=== PATIENT | female | born 1965 | race Caucasian/White ===

== ENCOUNTER → 2019-06-27 | Outpatient (CLI) | payer OTHER ==
[~2019-06-27] MED LIST: ATIVAN0.5 MG PO; CEFDINIR300 MG PO; CELEBREX 200 M200 M1 PO; HUMALOG100 UNIT/1 SUBQ; HYDROCODONE-AP1 EAC6 PO; HYDROCODONE-APA1 TA1 PO; LEVEMIR SUBQ; LEVOTHYROXIN0.025 MG PO; MULTIVITAMINS1 EAC7 PO; NOVOLOG100 UNIT/1 SUBQ; SERTRALINE HCL50 MG PO; TRAZODONE 150150 M1 PO; VITAMIN B COMP1 EACH PO; ZYRTEC10 M5 PO
== END ==
LOC: RAD 10:43
DX: M50.120 Mid-cervical disc disorder, unspecified level (principal); M48.02 Spinal stenosis, cervical region; M46.82 Other specified inflammatory spondylopathies, cervical region; M25.511 Pain in right shoulder; M25.512 Pain in left shoulder

== ENCOUNTER → 2019-07-16 | Outpatient (CLI) | payer OTHER | LOC: MRI 07:14 | DX: M25.411 Effusion, right shoulder (principal); M75.81 Other shoulder lesions, right shoulder; Z88.0 Allergy status to penicillin; Z88.8 Allergy status to other drugs, medicaments and biological substances ==

== ENCOUNTER → 2020-04-16 | Outpatient (CLI) | payer OTHER ==
[2020-04-16 09:28] LABS: BASOPHILS 1.2 % (0.0-2.0); EOSINOPHILS 2.6 % (0.0-3.0); HEMOGLOBIN 13.7 gm/dL (12.0-15.0); LYMPHOCYTES 30.8 % (24.0-44.0); MCH 31.1 pg (26.0-34.0); MCV 88.7 fL (80.0-100.0); PLATELET COUNT 335 thou/uL (150-400); POLYS 57.4 % (36.0-66.0); RDW 12.3 % (10.5-14.5); WBC 8.6 thou/uL (4.0-11.0)
[2020-04-16 10:13] LABS: ALBUMIN 3.9 g/dL (3.4-5.0); ANION GAP 11 mmol/L (7-16); BUN 12 mg/dL (7-18); CALCIUM 8.9 mg/dL (8.5-10.1); CHLORIDE 94 mmol/L (98-107); CHOLESTEROL 158 mg/dL (<200); CO2 25 mmol/L (21-32); CREATININE 0.7 mg/dL (0.6-1.0); GLUCOSE 125 mg/dL (74-106); HDL CHOLESTEROL 93 mg/dL (>40); LDL CHOLESTEROL 57 mg/dL (<100); SGOT 14 U/L (15-37); SGPT 24 U/L (30-65); SODIUM 130 mmol/L (136-145); TC:HDL 1.7 Ratio (Not establshd); TOTAL BILIRUBIN 0.3 mg/dL (0.2-1.0); TOTAL PROTEIN 6.5 g/dL (6.4-8.2); TRIGLYCERIDE 42 mg/dL (<150); VLDL 8 mg/dL (<40)
[2020-04-17 00:06] LABS: GLYCOHEMOGLOBIN (HGB A1C) 8.4 % (4.8-5.6)
== END ==
LOC: LAB 08:43
PROVIDERS: ATTEND Nurse Practitioner
DX: M32.8 Other forms of systemic lupus erythematosus (principal); I10 Essential (primary) hypertension; E10.9 Type 1 diabetes mellitus without complications

== ENCOUNTER → 2020-05-06 | Outpatient (CLI) | payer OTHER ==
[~2020-05-06] MED LIST changes: +ACETAMINOPHEN-1 EAC2 PO; +MOBIC7.5 MG PO; +NAPROSYN500 M1 PO; +NEURONTIN100 MG PO; +NORFLEX100 MG PO; +PLAQUENIL200 MG PO; +SENNA-DOCUSATE1 EAC1 PO; +SIMVASTATIN80 MG PO; +ZESTRIL10 MG PO; +ZOFRAN ODT4 MG PO
== END ==
LOC: MRI 12:33
PROVIDERS: ATTEND Family Medicine
DX: R42 Dizziness and giddiness (principal)

== ENCOUNTER 2020-06-13 10:36 | Emergency (ER) | payer OTHER ==
[~2020-06-13] VITALS: Ht 167.6 cm; Wt 73.0 kg
--- NOTE | ~2020-06-13 | EMS ---
[address] [address] EMS Patient Care Report Name: JULI DIANA Room #: REG GELY Mckeon#: [id number] Admission: 06/13/20 Attend Phys: Discharge: Date of : 65 Report #: [id number] THIS REPORT FOR: //name// Report Transmitted: 06/13/2020 10:49 EMS Care Summary [facility] MED-ACT Incident [id number] @ 06/13/2020 09:57 Incident Location [facility] [address] [place], [place] [address] Patient JULI DIANA Female, 54 Years 1965 Patient Address [address] [place] [address] Patient History Diabetes,Hypertension (HTN), Patient Allergies Penicillin allergy, Patient Medications Insulin, Lisinopril, Hydroxychloroquine, Trazodone, Zoloft, Zyrtec, Simvastatin, Mobic, Chief Complaint "My lower back is killing me" Disposition Transported No Lights/[place] Reason Unconscious/Fainting Transported To [facility] Narrative "My lower back is killing me" M1142 responded with E42 on a PT experiencing a syncopal episode. Upon our [facility] [address] [place] [address] EMS Patient Care Report Name: JULI DIANA Room #: REG GELY Mckeon#: [id number] Admission: 06/13/20 Attend Phys: Discharge: Date of : 65 Report #: [id number] arrival the PT was found lying supine on the back deck of the residence, alert and oriented complaining of pain to the lower back area associated with a fall that occurred around 8pm last night. The PT reports that this morning she felt faint and ill and went inside the residence and vomited once (vomit contained normal stomach contents) then came outside, had to lay down and asked her daughter to activate 911 declaring, "I need an ambulance". The PT reports that her back hurts associated with a fall down approximately 10 steps, the PT reports that she was carrying her grandson (that weighs approximately 40 lbs) and was wearing slippers and slipped down approximately 10 steps injuring her lower back. The PT denies being on blood thinning medications or losing consciousness. The PT requested to be transported to [facility] for further evaluation and treatment. The PT refused pain management therapy because narcotics cause her to vomit. The PT was log rolled onto a tarp and lifted and moved through the residence to the cot located in the front yard area, draped with a sheet and secured using the cot straps provided. The PT was then transferred to the ambulance via the cot without incident. Treatment - Assessment, Vital Signs, 3 Lead EKG, 12 Lead EKG, IV 20 GA Right Hand via Lock, Normal Saline via IV 350 cc's The PT was transported to [facility] per PT request. The PT rested on our cot throughout the duration of our care. The PT was delivered to exam room 8 and a verbal report was given to the attending RN without incident. M1142 went back in service as nothing further was required. Initial Vitals @10:18P: 72,R: 18,Pain: 10/10,GCS: 15,SpO2: 95,AK Suspected: false @10:11P: 69,R: 18,BP: 77/49,Pain: 10/10,GCS: 15,SpO2: 96,Revised Trauma: 11,AK Suspected: false @PTAP: 86,R: 18,Pain: 10/10,GCS: 15,Glucose: 191, @10:18P: 76,R: 18,BP: 105/64,Pain: 10/10,GCS: 15,SpO2: 94,Revised Trauma: 12,AK Suspected: false @10:03P: 71,R: 18,BP: 96/61,Pain: 10/10,GCS: 15,SpO2: 96,Revised Trauma: 12, @10:24P: 73,R: 18,BP: 122/87,Pain: 10/10,GCS: 15,SpO2: 94,Revised Trauma: 12,AK Suspected: false Assessments @10:04MENTAL:Person Oriented,Time Oriented,Place Oriented,Event Oriented,SKIN:HEENT:Head/Face: No Abnormalities,Eyes: No Abnormalities,Neck/Airway: No Abnormalities,LUNG SOUNDS:General: Vomiting,ABDOMEN:General: Vomiting,PELVIS//GI:No Abnormalities,EXTREMITIES:Left Arm: No Abnormalities,Right Arm: No Abnormalities,Left Leg: No Abnormalities,Right Leg: No Abnormalities,PULSE:NEURO:No Abnormalities, Impression [address] [address] EMS Patient Care Report Name: JULI DIANA Room #: REG ER .R.#: [id number] Admission: 06/13/20 Attend Phys: Discharge: Date of : 65 Report #: [id number] Syncope / Fainting Procedures @10:1812-Lead ECGResponse: UnchangedSucceeded@10:19Saline Lock 10cc (20 ga) Site: Hand-RightResponse: UnchangedSucceeded@10:20Normal Saline (.9% NaCl) 350cc () Site: Hand-RightResponse: Improved 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,BP: / M,PULSE: 86,RR: 18 R,SPO2: Ox,ETCO2: ,B,PAIN: 10,GCS: 15, 09:57,Call Received 09:57,Dispatched 09:57,Psap Call 09:58,En Route 10:00,On Scene 10:02,At Patient 10:03,BP: 96/61 M,PULSE: 71,RR: 18 R,SPO2: 96 Ox,ETCO2: ,BG: ,PAIN: 10,GCS: 15, 10:11,BP: 77/49 M,PULSE: 69,RR: 18 R,SPO2: 96 Ox,ETCO2: ,BG: ,PAIN: 10,GCS: 15, 10:18,12-Lead ECG,Response: UnchangedSucceeded, 10:18,BP: / M,PULSE: 72,RR: 18 R,SPO2: 95 Ox,ETCO2: ,BG: ,PAIN: 10,GCS: 15, 10:18,BP: 105/64 M,PULSE: 76,RR: 18 R,SPO2: 94 Ox,ETCO2: ,BG: ,PAIN: 10,GCS: 15, 10:19,Saline Lock 10cc 20 ga Site: Hand-Right,Response: UnchangedSucceeded, 10:19,Depart Scene 10:20,Normal Saline (.9% NaCl) 350cc Site: Hand-Right,Response: Improved 10:24,BP: 122/87 M,PULSE: 73,RR: 18 R,SPO2: 94 Ox,ETCO2: ,BG: ,PAIN: 10,GCS: 15, 10:31,At Destination 10:45,Call Closed Disclaimer v1.1 Copyright 2020 [employer] This EMS Care Summary contains data elements from the applicable legal record (which may be displayed differently). It is designed to provide pertinent information for the following purposes: continuity of care, clinical quality, and state data reporting. The complete legal record is available to ED staff and administrators of the receiving hospital in [employer] Patient Tracker. All data is provided "as is."
[~2020-06-13 10:36] MED LIST changes: -ACETAMINOPHEN-1 EAC2 PO; -MOBIC7.5 MG PO; -NAPROSYN500 M1 PO; -NEURONTIN100 MG PO; -NORFLEX100 MG PO; -PLAQUENIL200 MG PO; -SENNA-DOCUSATE1 EAC1 PO; -SIMVASTATIN80 MG PO; -ZESTRIL10 MG PO; -ZOFRAN ODT4 MG PO
[2020-06-13] MEDS ORDERED: PLAQUENIL200 MG PO (11:39)
[2020-06-13] MEDS ORDERED: MOBIC7.5 MG PO (11:39)
[2020-06-13] MEDS ORDERED: NEURONTIN100 MG PO (11:40)
[2020-06-13] MEDS ORDERED: ZESTRIL10 MG PO (11:40)
[2020-06-13 11:41] LABS: ABSOLUTE NEUTROPHILS 9.2 thou/uL (1.4-8.2); BASOPHILS 0.6 % (0.0-2.0); EOSINOPHILS 4.1 % (0.0-3.0); HEMATOCRIT 42.3 % (37.0-47.0); HEMOGLOBIN 13.9 gm/dL (12.0-15.0); LYMPHOCYTES 14.5 % (24.0-44.0); MCH 30.6 pg (26.0-34.0); MCHC 32.9 g/dL (28.0-37.0); POLYS 71.8 % (36.0-66.0); RBC 4.55 mil/uL (4.20-5.00); RDW 13.2 % (10.5-14.5); WBC 12.8 thou/uL (4.0-11.0)
[2020-06-13] MEDS ORDERED: SIMVASTATIN80 MG PO (11:41)
[2020-06-13 11:47] LABS: ANION GAP 8 mmol/L (7-16); BUN 13 mg/dL (7-18); CALCIUM 8.2 mg/dL (8.5-10.1); CHLORIDE 106 mmol/L (98-107); CO2 24 mmol/L (21-32); CREATININE 0.9 mg/dL (0.6-1.0); GLUCOSE 215 mg/dL (74-106); SODIUM 138 mmol/L (136-145)
[2020-06-13 11:56] LABS: ALBUMIN 3.2 g/dL (3.4-5.0); DIRECT BILIRUBIN < 0.1 mg/dL (<0.1-0.2); SGOT 19 U/L (15-37); SGPT 23 U/L (30-65); TOTAL BILIRUBIN 0.2 mg/dL (0.2-1.0); TOTAL PROTEIN 5.8 g/dL (6.4-8.2); TROPONIN-I <0.06 ng/mL (<0.06)
[2020-06-13 12:12] LABS: APTT 23.6 Seconds (24.5-32.8)
[2020-06-13 12:56] LABS: PLATELET COUNT 254 thou/uL (150-400)
[2020-06-13] MEDS ORDERED: ACETAMINOPHEN-1 EAC2 PO (14:56)
[2020-06-13] MEDS ORDERED: NAPROSYN500 M1 PO (14:56)
[2020-06-13] MEDS ORDERED: NORFLEX100 MG PO (14:56)
[2020-06-13] MEDS ORDERED: SENNA-DOCUSATE1 EAC1 PO (14:56)
[2020-06-13] MEDS ORDERED: ZOFRAN ODT4 MG PO (14:56)
[2020-06-13 15:00] VITALS: BP 131/47
== END 2020-06-13 15:18 | disposition home or self-care (01) ==
LOC: ER 10:36
PROVIDERS: Emergency Medicine
DX: S22.42XA Multiple fractures of ribs, left side, initial encounter for closed fracture (principal); R11.10 Vomiting, unspecified; R10.12 Left upper quadrant pain; F17.210 Nicotine dependence, cigarettes, uncomplicated; E10.9 Type 1 diabetes mellitus without complications; M19.90 Unspecified osteoarthritis, unspecified site; Z88.0 Allergy status to penicillin; Z88.8 Allergy status to other drugs, medicaments and biological substances; Z79.899 Other long term (current) drug therapy; Z79.4 Long term (current) use of insulin; Z98.890 Other specified postprocedural states; W10.8XXA Fall (on) (from) other stairs and steps, initial encounter; Y93.01 Activity, walking, marching and hiking; Y92.89 Other specified places as the place of occurrence of the external cause; Y99.9 Unspecified external cause status

== ENCOUNTER → 2020-06-18 | Outpatient (CLI) | payer OTHER ==
[~2020-06-18] MED LIST changes: +ACETAMINOPHEN-1 EAC2 PO; +MOBIC7.5 MG PO; +NAPROSYN500 M1 PO; +NEURONTIN100 MG PO; +NORFLEX100 MG PO; +PLAQUENIL200 MG PO; +SENNA-DOCUSATE1 EAC1 PO; +SIMVASTATIN80 MG PO; +ZESTRIL10 MG PO; +ZOFRAN ODT4 MG PO
== END ==
LOC: RAD 11:13
PROVIDERS: ATTEND Nurse Practitioner
DX: S22.42XA Multiple fractures of ribs, left side, initial encounter for closed fracture (principal); X58.XXXA Exposure to other specified factors, initial encounter; Y93.89 Activity, other specified; Y92.89 Other specified places as the place of occurrence of the external cause

== ENCOUNTER → 2020-07-16 | Outpatient (CLI) | payer OTHER | LOC: SJCVCIMAG 09:47 | PROVIDERS: ATTEND Internal Medicine | DX: R55 Syncope and collapse (principal) ==

== ENCOUNTER → 2020-07-18 | Outpatient (CLI) | payer OTHER | LOC: CAT 08:07 → MRI 10:27 → CAT 15:19 | PROVIDERS: ATTEND Nurse Practitioner | DX: S22.42XA Multiple fractures of ribs, left side, initial encounter for closed fracture (principal); J43.9 Emphysema, unspecified; J98.11 Atelectasis; J84.10 Pulmonary fibrosis, unspecified; J98.4 Other disorders of lung; X58.XXXA Exposure to other specified factors, initial encounter; Y93.89 Activity, other specified; Y92.89 Other specified places as the place of occurrence of the external cause; Y99.8 Other external cause status ==

== ENCOUNTER → 2020-08-28 | Outpatient (CLI) | payer OTHER | LOC: LAB 10:59 | PROVIDERS: ATTEND Nurse Practitioner | DX: Z20.828 Contact with and (suspected) exposure to other viral communicable diseases (principal) ==

== ENCOUNTER → 2020-11-03 | Outpatient (CLI) | payer OTHER ==
[~2020-11-03] MED LIST changes: +CHANTIX1 MG PO; +LANTUS SOL100 UNIT/1 SUBQ; +MOBIC15 MG PO; +ZOCOR 10 MG TAB10 MG PO
== END ==
LOC: LAB 09:47
PROVIDERS: ATTEND Orthopaedic Surgery Hand Surgery
DX: Z01.812 Encounter for preprocedural laboratory examination (principal); Z20.822 Contact with and (suspected) exposure to COVID-19

== ENCOUNTER 2020-11-06 13:40 | Day surgery (SDC) | payer OTHER ==
[~2020-11-06] VITALS: Ht 167.6 cm; Wt 77.1 kg
[2020-11-06 14:32] VITALS: BP 128/64
[2020-11-06 17:02] VITALS: BP 128/64
--- NOTE | 2020-11-11 14:01 | O ---
[facility] [place] [address] OPERATIVE REPORT Name: JULI DIANA Room #: DEP [facility]..#: [id number] Admission: 11/06/20 Attend Phys: Mela Bell, Discharge: 11/06/20 Date of : 65 Report #: [id number] THIS REPORT FOR: cc: Dixon Tovar MD, Neal A. MD Deardorff, Valerie A. MD ~ DATE OF SERVICE: 11/06/2020 PREOPERATIVE DIAGNOSIS: Left carpal tunnel syndrome. POSTOPERATIVE DIAGNOSIS: Left carpal tunnel syndrome. PROCEDURE PERFORMED: Left endoscopic carpal tunnel release. SURGEON: Mela Bell MD ANESTHESIA: General mask anesthesia. ESTIMATED BLOOD LOSS: Minimal. TOURNIQUET TIME: 9 minutes. COMPLICATIONS: None. CONDITION: Stable. DISPOSITION: Recovery room. INDICATIONS: The patient is a 55-year-old female with the above-mentioned diagnosis. She elects for operative treatment. The risks, benefits, alternatives, and complications were discussed including, but not limited to, infection, damage to vessels or nerves, incomplete relief or worsening of any symptoms. Informed consent was obtained. The correct extremity was identified and labeled by myself after verbal confirmation with the patient as well as visual confirmation and signed informed consent. The patient initially had a desire to do bilateral simultaneous carpal tunnel releases; however, she changed her mind and wanted to do the left today and then in two weeks will plan for the right carpal tunnel release. DESCRIPTION OF PROCEDURE: The patient was brought back to the operating room and placed in supine position. She received preoperative antibiotics. Tourniquet was placed over padding on the patient's left upper extremity. Left upper extremity was sterilely prepped and draped in the usual fashion. Final timeout was taken to verify correct patient, operative procedure, operative site, all concurred. The arm was elevated, exsanguinated, tourniquet inflated. [address] [address] OPERATIVE REPORT Name: LEBRONJULI ZEESHAN Room #: DEP [facility]..#: [id number] Admission: 11/06/20 Attend Phys: Mela Bell, Discharge: 11/06/20 Date of : 65 Report #: [id number] The entire procedure was done with the aid of a 3.5 loupe magnification. A transverse incision was made at few millimeters proximal to the distal wrist crease in line with ulnar border of the palmaris longus tendon. Dissection was carried down through subcutaneous tissue with tenotomy scissors. The antebrachial fascia was identified and incised. It was then incised for a few millimeters proximal. Next, an oblique incision was made distal to the hook of the hamate in line with the ring finger. The fat was elevated off the fascia. The fascia was carefully incised. Next, a probe was placed through the carpal tunnel and any synovial tissue was elevated off the undersurface of the transverse carpal ligament. Next, a blunt trocar and cannula was inserted with the wrist in maximal extension and digital pressure distally. The blunt trocar was removed. The camera was inserted and nice transverse fibers of the undersurface of the transverse carpal ligament were identified. The hook plate was brought in distally and transverse carpal ligament was transected distally. Next, a camera was inserted distally and the transverse carpal ligament was transected proximally. Next, the camera and cannula were withdrawn and visualized the cut ends of the transverse carpal ligament. Next, each wound was explored. The release was all away from the antebrachial fascia of the forearm all the way through the fat in the palm. A [place] elevator was placed through the carpal tunnel and no remnants of the transverse carpal ligament remained. The wounds were thoroughly irrigated. The skin was closed with 4-0 nylon suture. Subcutaneous tissue was infiltrated with approximately 5 mL of 0.25% Marcaine. She was placed in a bulky dressing. All fingers were pink with brisk capillary refill at the conclusion of case after deflation of tourniquet. All sponge and needle counts were correct. The patient was transferred to postoperative recovery room in stable condition. <ELECTRONICALLY SIGNED> By: Mela Bell MD 11/11/20 1401 [id number] Mela Bell MD /nt
== END 2020-11-06 17:35 | disposition home or self-care (01) ==
LOC: OR 13:40 → TBA 13:40 → OR 17:35
PROVIDERS: ATTEND Orthopaedic Surgery Hand Surgery
DX: G56.03 Carpal tunnel syndrome, bilateral upper limbs (principal); E10.9 Type 1 diabetes mellitus without complications; Z90.710 Acquired absence of both cervix and uterus; E06.3 Autoimmune thyroiditis; F32.9 Major depressive disorder, single episode, unspecified; F41.9 Anxiety disorder, unspecified; I73.00 Raynaud's syndrome without gangrene; I10 Essential (primary) hypertension; E78.5 Hyperlipidemia, unspecified; J44.9 Chronic obstructive pulmonary disease, unspecified; M51.27 Other intervertebral disc displacement, lumbosacral region; F17.210 Nicotine dependence, cigarettes, uncomplicated; M32.9 Systemic lupus erythematosus, unspecified; Z90.722 Acquired absence of ovaries, bilateral; Z98.890 Other specified postprocedural states; Z88.0 Allergy status to penicillin; Z91.018 Allergy to other foods; Z88.8 Allergy status to other drugs, medicaments and biological substances; M19.90 Unspecified osteoarthritis, unspecified site
CPT/HCPCS: 50010; 50101; 50386; 56526; 56969; 57006; 57091; 57178; 62110; 62900; 70005

== ENCOUNTER → 2020-11-17 | Outpatient (CLI) | payer OTHER | LOC: LAB 11:36 | PROVIDERS: ATTEND Anesthesiology | DX: Z01.812 Encounter for preprocedural laboratory examination (principal); Z20.822 Contact with and (suspected) exposure to COVID-19 ==